=== PATIENT | female | born 1960 | race Caucasian/White ===

== ENCOUNTER → 2019-10-13 | Outpatient (CLI) | payer OTHER ==
--- NOTE | 2019-10-13 14:13 | RADIOLOGY REPORT (SQ) ---
EXAM DESCRIPTION: MRI CERVICAL SPINE WITHOUT IMAGES COMPLETED DATE/TIME: 10/13/2019 11:49 am REASON FOR STUDY: M50.222 OTHER CERVICAL DISC DISPLACEMENT AT C5-C6 LEVEL M50.222 OTHER CERVICAL DI SC DISPLACEMENT AT C5-C6 LEVEL COMPARISON: None. TECHNIQUE: Sagittal and Axial imaging includes T1, T2, STIR and gradient echo sequences. LIMITATIONS: None. FINDINGS: ALIGNMENT: Straightening of the normal cervical lordosis VERTEBRAE: Intact. BONE MARROW: Normal. No marrow replacement or reactive changes. DISCS: Multilevel disc height loss and desiccation greatest at C4-C7. HARDWARE: None in the spine. CORD AND BASE OF BRAIN: Normal in size and signal intensity. SOFT TISSUES: No soft tissue masses. C1-C2: No significant spinal stenosis. C2-C3: No significant spinal stenosis or exit foraminal stenosis. C3-C4: No significant spinal stenosis or exit foraminal stenosis. C4-C5: Disc desiccation and height loss with posterior disc osteophyte complex causing mild canal julio nosis and effacement of the anterior CSF column. There is a moderate right and mild left neural fora justyna narrowing secondary to uncovertebral and disc disease. C5-C6: Disc desiccation and height loss with posterior disc complex causing mild canal stenosis and e ffacement of the anterior CSF column. There is moderate bilateral neural foraminal narrowing seconda ry to uncovertebral and disc disease, right greater than left. C6-C7: Disc desiccation and height loss with posterior disc osteophyte complex causing mild canal julio nosis and effacement of the anterior CSF column. There is mild right and xnup-ae-aeevdvdu left neura l foraminal narrowing secondary to disc and uncovertebral hypertrophy. C7-T1: No significant spinal stenosis or exit foraminal stenosis. UPPER THORACIC: Incompletely imaged. No significant spinal stenosis or exit foraminal stenosis. OTHER: No other significant finding. IMPRESSION: 1. No evidence of acute bony abnormality of the cervical spine. 2. Multilevel level degenerative disc changes with disc height loss and posterior disc osteophyte co mplexes from C4-C7 with resultant mild canal stenosis and [id number]-pl-bvglckce neural foraminal narrowing as above. TECHNICAL DOCUMENTATION: JOB ID: [id number] 2010 [employer]- All Rights Reserved Reading location - IP/workstation name: [email or web address]
== END ==
LOC: RAD 11:03 → EDBD 11:15
PROVIDERS: ATTEND Physician Assistant
DX: M50.222 Other cervical disc displacement at C5-C6 level (principal)
CPT/HCPCS: 72141